=== PATIENT | female | born 1975 | race Caucasian/White ===

== ENCOUNTER 2017-06-01 09:21 | Emergency (ER) | payer OTHER ==
[~2017-06-01] VITALS: Ht 170.2 cm; Wt 74.8 kg
[~2017-06-01 09:21] MED LIST: CLON.1 PO; Cheratussin AC118 ML PO; LEVE500; LEVE500 PO; Medi-Meclizine25 MG PO; Zantac150 MG PO
[2017-06-01 09:58] LABS: BASOPHILS ABSOLUTE AUTO 0.07 K/mm3 (0.00-0.23); BASOPHILS PERCENT AUTO 1 % (0-2); EOSINOPHILS ABSOLUTE AUTO 0.29 K/mm3 (0.00-0.68); EOSINOPHILS PERCENT AUTO 3 % (0-6); Hematocrit 37.4 % (33.0-51.0); Hemoglobin 12.3 g/dL (11.5-16.0); IMMATURE GRAN ABSOLUTE AUTO 0.03 K/mm3 (0.00-0.10); IMMATURE GRAN PERCENT AUTO 0 % (0-1); LYMPHOCYTES ABSOLUTE AUTO 4.06 K/mm3 (0.84-5.20); LYMPHOCYTES PERCENT AUTO 39 % (21-46); MONOCYTES ABSOLUTE AUTO 0.81 K/mm3 (0.16-1.47); MONOCYTES PERCENT AUTO 8 % (4-13); Mean Corpuscular HGB 30.1 pg (26.0-34.0); Mean Corpuscular HGB Conc 32.9 g/dL (31.5-36.5); Mean Corpuscular Volume 91 fL (80-100); Mean Platelet Volume 10.6 fL (9.1-12.4); NEUTROPHILS ABSOLUTE AUTO 5.27 K/mm3 (1.96-9.15); NEUTROPHILS PERCENT AUTO 50 % (41-73); Platelet Count 318 K/mm3 (150-400); RDW Coefficient Variation 12.2 % (11.7-14.2); RDW Standard Deviation 41.1 fL (35.1-46.3); Red Blood Cell Count 4.09 M/mm3 (3.80-5.20); White Blood Cell Count 10.53 K/mm3 (4.00-11.30)
[2017-06-01 10:19] LABS: Anion Gap 9 mmol/L (6-16); Blood Urea Nitrogen 12 mg/dL (8-24); Bun/Creatinine Ratio 16.1 (12.0-20.0); CO2, Blood 24 mmol/L (21-32); Calcium, Blood 9.2 mg/dL (8.5-10.1); Chloride, Blood 105 mmol/L (98-108); Creatinine, Blood 0.74 mg/dL (0.40-1.00); Glomerular Filtration Rate >60 (60-); Glucose, Blood 85 mg/dL (70-99); Magnesium, Blood 2.1 mg/dL (1.6-2.4); Potassium, Blood 3.9 mmol/L (3.5-5.5); Sodium, Blood 138 mmol/L (136-145)
[2017-06-01 10:22] LABS: Source, Urine Catheter
[2017-06-01 10:23] LABS: Prolactin 13.2 ng/mL
[2017-06-01 10:35] LABS: Bilirubin, Urine Neg (Neg); Blood, Urine 1+ (Neg); Glucose Qualitative, Urine Neg (Neg); Ketones, Urine Neg (Neg); Leukocyte Esterase, Urine Neg (Neg); Nitrite, Urine Neg (Neg); Protein, Urine Neg (Neg); Urobilinogen, Urine NORM (Normal)
[2017-06-01 10:42] LABS: Appearance, Urine Clear (Clear); Color, Urine Yellow (P-Yellow)
[2017-06-01 10:46] LABS: Bacteria Few /hpf; White Blood Cells, Urine Not Seen /hpf (0-5)
[2017-06-01 10:47] LABS: Red Blood Cells, Urine 0-2 /hpf (0-2)
[2017-06-01 10:48] LABS: Squamous Epithelial Cells Many /hpf (Few)
[2018-02-13] MEDS ORDERED: Kristalose20 GM PO (17:45)
== END 2017-06-01 11:11 | disposition home or self-care (01) ==
LOC: ER 09:21
PROVIDERS: Emergency Medicine
DX: G40.909 Epilepsy, unspecified, not intractable, without status epilepticus (principal); Z79.899 Other long term (current) drug therapy; Z90.49 Acquired absence of other specified parts of digestive tract; Z87.891 Personal history of nicotine dependence
CPT/HCPCS: 36415; 80048; 81001; 83735; 84146; 85025; 95819; 99283

== ENCOUNTER 2017-07-05 11:19 | Day surgery (SDC) | payer OTHER ==
[~2017-07-05] VITALS: Ht 167.6 cm; Wt 74.5 kg
[2017-07-05] MEDS ORDERED: DICL75ER (11:43)
[2017-07-05] MEDS ORDERED: BUSP10 (11:43)
[2017-07-05] MEDS ORDERED: CYCL10 (11:44)
[2017-07-05] MEDS ORDERED: Neurontin 100100 MG (11:44)
[2017-07-05] MEDS ORDERED: Omeprazole20 M1 (11:45)
[2018-02-13] MEDS ORDERED: Kristalose20 GM PO (17:45)
== END 2017-07-05 13:21 | disposition home or self-care (01) ==
LOC: ORSCSDS 11:19
PROVIDERS: Internal Medicine Gastroenterology
PROC: 0DB58ZX Excision of Esophagus, Via Natural or Artificial Opening Endoscopic, Diagnostic (ICD-10-PCS; principal; 2017-07-05 12:45)
PROC: 0DB68ZX Excision of Stomach, Via Natural or Artificial Opening Endoscopic, Diagnostic (ICD-10-PCS; principal; 2017-07-05 12:45)
PROC: 0DB88ZX Excision of Small Intestine, Via Natural or Artificial Opening Endoscopic, Diagnostic (ICD-10-PCS; principal; 2017-07-05 12:45)
DX: R11.2 Nausea with vomiting, unspecified (principal); K20.9 Esophagitis, unspecified; K29.70 Gastritis, unspecified, without bleeding; R10.9 Unspecified abdominal pain; I10 Essential (primary) hypertension; J44.9 Chronic obstructive pulmonary disease, unspecified; Z87.891 Personal history of nicotine dependence; Z87.11 Personal history of peptic ulcer disease; Z79.899 Other long term (current) drug therapy; K29.80 Duodenitis without bleeding
CPT/HCPCS: 88305; 88342; J7120

== ENCOUNTER → 2017-07-18 | Outpatient (CLI) | payer OTHER ==
[~2017-07-18] MED LIST changes: +AMIT10 PO; +BUSP10; +CYCL10; +DICL75ER; +Kristalose20 GM PO; +Naprosyn500 MG PO; +Neurontin 100100 MG; +Norco 5-325 Ta1 EACH PO; +Omeprazole20 M1
== END | disposition home or self-care (01) ==
LOC: LAB 15:29
DX: N39.0 Urinary tract infection, site not specified (principal)
CPT/HCPCS: 87077; 87086; 87186

== ENCOUNTER 2017-10-04 | Day surgery (SDC) | END 2017-10-04 11:28 | disposition home or self-care (01) ==

== ENCOUNTER 2017-11-29 11:10 | Emergency (ER) | payer OTHER ==
[~2017-11-29] VITALS: Ht 167.6 cm; Wt 63.5 kg
[~2017-11-29 11:10] MED LIST changes: -AMIT10 PO; -Kristalose20 GM PO; -Naprosyn500 MG PO; -Norco 5-325 Ta1 EACH PO
[2017-11-29 12:06] LABS: Source, Urine Clean Catch
[2017-11-29 12:22] LABS: BASOPHILS ABSOLUTE AUTO 0.03 K/mm3 (0.00-0.23); BASOPHILS PERCENT AUTO 1 % (0-2); EOSINOPHILS ABSOLUTE AUTO 0.15 K/mm3 (0.00-0.68); EOSINOPHILS PERCENT AUTO 3 % (0-6); Hematocrit 35.9 % (33.0-51.0); Hemoglobin 11.9 g/dL (11.5-16.0); IMMATURE GRAN ABSOLUTE AUTO 0.01 K/mm3 (0.00-0.10); IMMATURE GRAN PERCENT AUTO 0 % (0-1); LYMPHOCYTES ABSOLUTE AUTO 2.65 K/mm3 (0.84-5.20); LYMPHOCYTES PERCENT AUTO 47 % (21-46); MONOCYTES ABSOLUTE AUTO 0.45 K/mm3 (0.16-1.47); MONOCYTES PERCENT AUTO 8 % (4-13); Mean Corpuscular HGB 30.3 pg (26.0-34.0); Mean Corpuscular HGB Conc 33.1 g/dL (31.5-36.5); Mean Corpuscular Volume 91 fL (80-100); Mean Platelet Volume 10.7 fL (9.1-12.4); NEUTROPHILS ABSOLUTE AUTO 2.31 K/mm3 (1.96-9.15); NEUTROPHILS PERCENT AUTO 41 % (41-73); Platelet Count 262 K/mm3 (150-400); RDW Coefficient Variation 12.4 % (11.7-14.2); RDW Standard Deviation 41.4 fL (35.1-46.3); Red Blood Cell Count 3.93 M/mm3 (3.80-5.20)
[2017-11-29 12:37] LABS: Alanine Aminotransfer (ALT/SGP 19 U/L (12-78); Albumin, Blood 3.9 g/dL (3.4-5.0); Alk Phos 55 U/L (50-136); Anion Gap 7 mmol/L (6-16); Aspartate Aminotrans (AST/SGOT 11 U/L (12-37); Bilirubin, Total 0.4 mg/dL (0.1-1.0); Blood Urea Nitrogen 8 mg/dL (8-24); Bun/Creatinine Ratio 11.3 (12.0-20.0); CO2, Blood 26 mmol/L (21-32); Chloride, Blood 108 mmol/L (98-108); Creatinine, Blood 0.71 mg/dL (0.40-1.00); Glomerular Filtration Rate >60 (60-); Glucose, Blood 76 mg/dL (70-99); Potassium, Blood 3.7 mmol/L (3.5-5.5); Sodium, Blood 141 mmol/L (136-145); Total Protein, Blood 7.9 g/dL (6.4-8.2)
[2017-11-29 12:42] LABS: Bilirubin, Urine Neg (Neg); Blood, Urine 1+ (Neg); Glucose Qualitative, Urine Neg (Neg); Ketones, Urine Neg (Neg); Leukocyte Esterase, Urine Neg (Neg); Nitrite, Urine Neg (Neg); Protein, Urine Neg (Neg); Urobilinogen, Urine NORM (Normal)
[2017-11-29 12:55] LABS: Appearance, Urine Clear (Clear); Color, Urine Pale Yellow (P-Yellow)
[2017-11-29 12:58] LABS: Bacteria Few /hpf; Squamous Epithelial Cells Not Seen /hpf (Few); White Blood Cells, Urine 0-2 /hpf (0-5)
[2017-11-29] MEDS ORDERED: Naprosyn500 MG PO (16:05)
[2017-11-29] MEDS ORDERED: Norco 5-325 Ta1 EACH PO (16:05)
== END 2017-11-29 16:21 | disposition home or self-care (01) ==
LOC: ER 11:10
PROVIDERS: Internal Medicine
DX: N93.8 Other specified abnormal uterine and vaginal bleeding (principal); Z79.899 Other long term (current) drug therapy; Z87.891 Personal history of nicotine dependence
CPT/HCPCS: 36415; 74176; 76830; 76856; 80053; 81001; 81025; 83690; 85025; 96374; 96375; 96376; 99284-25; J2405; J3010

== ENCOUNTER 2018-02-02 16:34 | Emergency (ER) | payer OTHER ==
[~2018-02-02] VITALS: Ht 167.6 cm; Wt 62.1 kg
[~2018-02-02 16:34] MED LIST changes: +Naprosyn500 MG PO; +Norco 5-325 Ta1 EACH PO
[2018-02-02 17:13] LABS: BASOPHILS ABSOLUTE AUTO 0.05 K/mm3 (0.00-0.23); BASOPHILS PERCENT AUTO 1 % (0-2); EOSINOPHILS ABSOLUTE AUTO 0.17 K/mm3 (0.00-0.68); EOSINOPHILS PERCENT AUTO 2 % (0-6); Hemoglobin 11.9 g/dL (11.5-16.0); IMMATURE GRAN ABSOLUTE AUTO 0.03 K/mm3 (0.00-0.10); IMMATURE GRAN PERCENT AUTO 0 % (0-1); LYMPHOCYTES ABSOLUTE AUTO 4.08 K/mm3 (0.84-5.20); LYMPHOCYTES PERCENT AUTO 41 % (21-46); MONOCYTES ABSOLUTE AUTO 0.64 K/mm3 (0.16-1.47); MONOCYTES PERCENT AUTO 6 % (4-13); Mean Corpuscular HGB 30.7 pg (26.0-34.0); Mean Corpuscular HGB Conc 33.1 g/dL (31.5-36.5); Mean Corpuscular Volume 93 fL (80-100); Mean Platelet Volume 10.2 fL (9.1-12.4); NEUTROPHILS ABSOLUTE AUTO 5.08 K/mm3 (1.96-9.15); NEUTROPHILS PERCENT AUTO 51 % (41-73); Platelet Count 280 K/mm3 (150-400); RDW Coefficient Variation 12.4 % (11.7-14.2); RDW Standard Deviation 42.5 fL (35.1-46.3); Red Blood Cell Count 3.88 M/mm3 (3.80-5.20); White Blood Cell Count 10.05 K/mm3 (4.00-11.30)
[2018-02-02 17:26] LABS: Troponin I <0.015 ng/mL (0.000-0.040)
[2018-02-02 17:30] LABS: Alanine Aminotransfer (ALT/SGP 20 U/L (12-78); Albumin/Globulin Ratio 1.1 (0.8-1.8); Alk Phos 66 U/L (50-136); Anion Gap 8 mmol/L (6-16); Aspartate Aminotrans (AST/SGOT 14 U/L (12-37); Bilirubin, Total 0.5 mg/dL (0.1-1.0); Blood Urea Nitrogen 13 mg/dL (8-24); Bun/Creatinine Ratio 16.2 (12.0-20.0); CO2, Blood 23 mmol/L (21-32); Calcium, Blood 9.1 mg/dL (8.5-10.1); Chloride, Blood 105 mmol/L (98-108); Globulin, Blood 3.8 g/dL (2.2-4.0); Glomerular Filtration Rate >60 (60-); Glucose, Blood 96 mg/dL (70-99); Potassium, Blood 3.5 mmol/L (3.5-5.5); Sodium, Blood 136 mmol/L (136-145); Total Protein, Blood 7.8 g/dL (6.4-8.2)
[2018-02-02 18:06] LABS: Source, Urine Clean Catch
[2018-02-02 18:30] LABS: Appearance, Urine Clear (Clear); Bilirubin, Urine Neg (Neg); Blood, Urine Neg (Neg); Color, Urine Yellow (P-Yellow); Glucose Qualitative, Urine Neg (Neg); Ketones, Urine 2+ (Neg); Leukocyte Esterase, Urine Neg (Neg); Nitrite, Urine Neg (Neg); Protein, Urine Neg (Neg); Urobilinogen, Urine NORM (Normal)
[2018-02-02 18:45] LABS: U Amphetamine Screen Not Detected; U Barbituate Screen Not Detected; U Benzodiazapine Screen Not Detected; U Cocaine Screen Not Detected; U Methadone Screen Not Detected; U Methamphetamine Screen Not Detected; U Opiates Screen Not Detected; U Phencyclidine Screen Not Detected
[2018-02-02 18:46] LABS: U Buprenorphine Screen Not Detected; U Cannabinoids Screen DETECTED; U Oxycodone Screen Not Detected; U Propoxyphene Screen Not Detected
[2018-02-02] MEDS ORDERED: AMIT10 PO (19:52)
== END 2018-02-02 20:32 | disposition home or self-care (01) ==
LOC: ER 16:34
PROVIDERS: Emergency Medicine
DX: R55 Syncope and collapse (principal); K29.70 Gastritis, unspecified, without bleeding; Z79.899 Other long term (current) drug therapy; Z87.891 Personal history of nicotine dependence
CPT/HCPCS: 36415; 80053; 81003; 81025; 83690; 84484; 85025; 93005; 93010; 96374; 96375; 99284-25; J2405; J3010

== ENCOUNTER 2018-05-25 12:42 | Day surgery (SDC) | payer OTHER ==
[~2018-05-25] VITALS: Ht 167.6 cm; Wt 63.0 kg
[~2018-05-25 12:42] MED LIST changes: +ALBU90OI INH; +AMIT10 PO; +BUSP15 PO; +CLON.2 PO; +CYCL10 PO; +Cymbalta60 MG PO; +Kristalose20 GM PO; +LINZESS145 MCG PO; +ONDA4 PO; +Zegerid 40 MG1 EACH PO
[2018-05-25] MEDS ORDERED: DICL75ER PO (14:40)
--- NOTE | 2018-05-25 14:46 | NUR ---
05/25/18 1446 Shade Calvin 1ST IV ATTEMPT IN LAC UNSUCCESSFUL, ORSC.BDK 2ND IV ATTEMPT IN RAC SUCCESSFUL, ORSC.BDK
--- NOTE | 2018-05-25 16:00 | NUR ---
05/25/18 1600 Shanae Day V PT RESTING IN RECLINER, CALL LIGHT WITHIN REACH, VSS. PT TRANSFERED W/ MINIMAL ASSISTANCE. PT APPEARS SLEEPY, EYES CLOSED BUT DOES RESPOND TO VERBAL STIMULI.
[2018-06-16] MEDS ORDERED: LINZESS145 MCG PO (14:45)
[2018-06-16] MEDS ORDERED: DULO60 PO (14:45)
[2018-06-16] MEDS ORDERED: OMEPRAZOLE MAGN20 MG PO (14:45)
== END 2018-05-25 16:44 | disposition home or self-care (01) ==
LOC: ORSCSDS 12:42
PROVIDERS: Obstetrics & Gynecology
PROC: 0U5F4ZZ Destruction of Cul-de-sac, Percutaneous Endoscopic Approach (ICD-10-PCS; principal; 2018-05-25 14:15)
DX: N92.1 Excessive and frequent menstruation with irregular cycle (principal); N80.3 Endometriosis of pelvic peritoneum; N83.201 Unspecified ovarian cyst, right side; N94.6 Dysmenorrhea, unspecified; N94.10 Unspecified dyspareunia; R10.2 Pelvic and perineal pain; I10 Essential (primary) hypertension; J45.909 Unspecified asthma, uncomplicated; Z87.891 Personal history of nicotine dependence; K21.9 Gastro-esophageal reflux disease without esophagitis; Z79.899 Other long term (current) drug therapy
CPT/HCPCS: J0690; J1100; J1885; J2250; J2405; J2710; J3010

== ENCOUNTER 2018-06-28 09:26 | Day surgery (SDC) | payer OTHER ==
[~2018-06-28] VITALS: Ht 167.6 cm; Wt 61.8 kg
[~2018-06-28 09:26] MED LIST changes: +DICL75ER PO; +DULO60 PO; +OMEPRAZOLE MAGN20 MG PO
--- NOTE | 2018-06-28 11:51 | NUR ---
06/28/[address] SEEING PT. 1124.PT. C/O ABD. PAIN & LOWER BACK PAIN RATING "8". ORDERED CBC & ABD. X-RAY.
[2018-06-28 11:53] LABS: BASOPHILS ABSOLUTE AUTO 0.04 K/mm3 (0.00-0.23); BASOPHILS PERCENT AUTO 1 % (0-2); EOSINOPHILS ABSOLUTE AUTO 0.19 K/mm3 (0.00-0.68); EOSINOPHILS PERCENT AUTO 3 % (0-6); Hematocrit 36.4 % (33.0-51.0); Hemoglobin 11.9 g/dL (11.5-16.0); IMMATURE GRAN ABSOLUTE AUTO 0.01 K/mm3 (0.00-0.10); IMMATURE GRAN PERCENT AUTO 0 % (0-1); LYMPHOCYTES ABSOLUTE AUTO 3.44 K/mm3 (0.84-5.20); LYMPHOCYTES PERCENT AUTO 45 % (21-46); MONOCYTES ABSOLUTE AUTO 0.53 K/mm3 (0.16-1.47); MONOCYTES PERCENT AUTO 7 % (4-13); Mean Corpuscular HGB 30.7 pg (26.0-34.0); Mean Corpuscular HGB Conc 32.7 g/dL (31.5-36.5); Mean Corpuscular Volume 94 fL (80-100); Mean Platelet Volume 10.5 fL (9.1-12.4); NEUTROPHILS ABSOLUTE AUTO 3.42 K/mm3 (1.96-9.15); NEUTROPHILS PERCENT AUTO 45 % (41-73); Platelet Count 219 K/mm3 (150-400); RDW Coefficient Variation 12.5 % (11.7-14.2); Red Blood Cell Count 3.88 M/mm3 (3.80-5.20); White Blood Cell Count 7.63 K/mm3 (4.00-11.30)
== END 2018-06-28 13:28 | disposition home or self-care (01) ==
LOC: ORSCSDS 09:26
PROVIDERS: Internal Medicine Gastroenterology
PROC: 0DJD8ZZ Inspection of Lower Intestinal Tract, Via Natural or Artificial Opening Endoscopic (ICD-10-PCS; principal; 2018-06-28 11:45)
DX: R10.9 Unspecified abdominal pain (principal); R63.4 Abnormal weight loss; I10 Essential (primary) hypertension; R56.9 Unspecified convulsions; Z87.891 Personal history of nicotine dependence; Z79.899 Other long term (current) drug therapy
CPT/HCPCS: 74018; 85025; J2250; J2405; J3010; J7120

== ENCOUNTER 2018-08-23 06:06 | Day surgery (SDC) | payer OTHER ==
[2018-08-22 10:23] LABS: Hematocrit 37.7 % (33.0-51.0); Mean Corpuscular HGB 30.3 pg (26.0-34.0); Mean Corpuscular HGB Conc 31.8 g/dL (31.5-36.5); Mean Corpuscular Volume 95 fL (80-100); Mean Platelet Volume 10.8 fL (9.1-12.4); Platelet Count 270 K/mm3 (150-400); RDW Coefficient Variation 13.3 % (11.7-14.2); RDW Standard Deviation 46.8 fL (35.1-46.3); Red Blood Cell Count 3.96 M/mm3 (3.80-5.20); White Blood Cell Count 7.62 K/mm3 (4.00-11.30)
[2018-08-22 11:10] LABS: Anion Gap 5 mmol/L (6-16); Blood Urea Nitrogen 12 mg/dL (8-24); Bun/Creatinine Ratio 18.3 (12.0-20.0); CO2, Blood 26 mmol/L (21-32); Calcium, Blood 9.3 mg/dL (8.5-10.1); Chloride, Blood 107 mmol/L (98-108); Creatinine, Blood 0.66 mg/dL (0.40-1.00); Glomerular Filtration Rate >60 (60-); Glucose, Blood 67 mg/dL (70-99); Potassium, Blood 3.9 mmol/L (3.5-5.5); Sodium, Blood 138 mmol/L (136-145)
[~2018-08-23] VITALS: Ht 167.6 cm; Wt 61.5 kg
[~2018-08-23 06:06] MED LIST changes: +ALBU90OI61 INH; +ONDA4ODT MM
--- NOTE | 2018-08-23 06:41 | NUR ---
History, Chart, Medications and Allergies reviewed before start of procedure. Lungs clear POST COUGH T/O to Auscultation. PT STATES SHE RECENTLY QUIT SMOKING AND SWITCHED TO VAPE.
--- NOTE | 2018-08-23 18:10 | NUR ---
PT HAS BEEN STABLE POST OP. PAIN MANAGED WITH PRN PAIN MEDS. SIMETHICONE GIVEN FOR GAS RELATED PAIN. PT UP TO AMBULATE HALLWAY X1 WITH MIN ASSIST. FORMAN DRAINING WELL, TO BE DC'D IN INGRID AM. TOLE REG DIET. CONT IV FLUIDS ORDERED. SCANT JOSE DANIEL DRAINAGE ON PAD. ABD BANDAGES CDI X3. AM LABS TO BE REPEATED.
[2018-08-24 04:47] LABS: BASOPHILS ABSOLUTE AUTO 0.03 K/mm3 (0.00-0.23); BASOPHILS PERCENT AUTO 0 % (0-2); EOSINOPHILS ABSOLUTE AUTO 0.07 K/mm3 (0.00-0.68); EOSINOPHILS PERCENT AUTO 1 % (0-6); Hemoglobin 9.8 g/dL (11.5-16.0); IMMATURE GRAN ABSOLUTE AUTO 0.04 K/mm3 (0.00-0.10); IMMATURE GRAN PERCENT AUTO 0 % (0-1); LYMPHOCYTES ABSOLUTE AUTO 4.02 K/mm3 (0.84-5.20); LYMPHOCYTES PERCENT AUTO 32 % (21-46); MONOCYTES ABSOLUTE AUTO 1.14 K/mm3 (0.16-1.47); MONOCYTES PERCENT AUTO 9 % (4-13); Mean Corpuscular HGB 29.7 pg (26.0-34.0); Mean Corpuscular HGB Conc 31.6 g/dL (31.5-36.5); Mean Corpuscular Volume 94 fL (80-100); Mean Platelet Volume 10.3 fL (9.1-12.4); NEUTROPHILS ABSOLUTE AUTO 7.32 K/mm3 (1.96-9.15); NEUTROPHILS PERCENT AUTO 58 % (41-73); Platelet Count 197 K/mm3 (150-400); RDW Coefficient Variation 13.4 % (11.7-14.2); RDW Standard Deviation 46.1 fL (35.1-46.3); White Blood Cell Count 12.62 K/mm3 (4.00-11.30)
--- NOTE | 2018-08-24 04:53 | NUR ---
SHIFT SUMMARY: PT POD #1 FOR LAVH. A&0 X4. BRADYCARDIC WITH HR 50-60. PT REPORTS THIS IS BASELINE FOR HER. PAIN MANAGED WITH TORADOL AND OXY 10MG PER EMAR. USING HOT PACK FOR COMFORT. SCANT DRG ON JOSE DANIEL PAD. FLUIDS INFUSING. WILL D/C CATHETER THIS AM. PT DENIES PASSING ANY GAS. ENC TO AMBULATE. ONE SBA FOR ALL TRANSFERS.
[2018-08-24] MEDS ORDERED: DOCU100 PO (12:40)
[2018-08-24] MEDS ORDERED: ESTR2 PO (12:41)
[2018-08-24] MEDS ORDERED: IBUP800 PO (12:41)
[2018-08-24] MEDS ORDERED: Percocet 5-3251 EACH PO (12:42)
[2018-08-24] MEDS ORDERED: Milk Of Ma400 MG/5 M PO (12:42)
[2018-08-24] MEDS ORDERED: PROM25 PO (12:43)
[2018-08-24] MEDS ORDERED: SIME80CH PO (12:43)
--- NOTE | 2018-08-24 12:53 | NUR ---
DIACHARGE: PT DC TO HOME AT THIS TIME WITH FAMILY. IV DC'D WNL. VERBALIZED UNDERSTANDING OF INSTRUCTIONS, FOLLOW UP, PROBLEMS TO REPORT AND MEDICATIONS. SCRIPTS GIVEN. PT LEFT VIA WHEELCHAIR TO CAR WITH BELONGINGS.
== END 2018-08-24 12:53 | disposition home or self-care (01) ==
LOC: ORSCMMR 06:06 → ORD 07:30 → ORSCMMR 07:30 → SURS 10:32 → ORSCMMR 08-24 12:53
PROVIDERS: Obstetrics & Gynecology
PROC: 0UT9FZZ Resection of Uterus, Via Natural or Artificial Opening With Percutaneous Endoscopic Assistance (ICD-10-PCS; principal; 2018-08-23 07:30)
PROC: 0UT2FZZ Resection of Bilateral Ovaries, Via Natural or Artificial Opening With Percutaneous Endoscopic Assistance (ICD-10-PCS; principal; 2018-08-23 07:30)
PROC: 0UT7FZZ Resection of Bilateral Fallopian Tubes, Via Natural or Artificial Opening With Percutaneous Endoscopic Assistance (ICD-10-PCS; principal; 2018-08-23 07:30)
DX: N94.6 Dysmenorrhea, unspecified (principal); N94.12 Deep dyspareunia; N92.1 Excessive and frequent menstruation with irregular cycle; R10.2 Pelvic and perineal pain; N80.0 Endometriosis of uterus; D25.9 Leiomyoma of uterus, unspecified; N80.3 Endometriosis of pelvic peritoneum; I10 Essential (primary) hypertension; J44.9 Chronic obstructive pulmonary disease, unspecified; F41.9 Anxiety disorder, unspecified; Z87.891 Personal history of nicotine dependence; Z79.899 Other long term (current) drug therapy
CPT/HCPCS: 36415; 80048; 84703; 85025; 85027; 86850; 86900; 86901; 88307; 93005; 93010; J0690; J1100; J1885; J2250; J2405; J2704; J3010; J7030; J7120